=== PATIENT | female | born 1960 | race African-American/Black ===

== ENCOUNTER 2020-10-29 09:22 | Emergency (ER) | payer OTHER ==
[2020-10-29 09:31] VITALS: BP 169/63; PULSE 85; TEMP 98.2; BMI 27.9
[2020-10-29 10:47] LABS: EOS % 0.7 % (0-4.5); HEMATOCRIT 39.4 % (32.4-45.2); HEMOGLOBIN 13.5 GM/dL (10.7-15.3); MCH 29.8 pg (25.7-33.7); MCHC 34.4 g/dl (32.0-36.0); MEAN CELL VOLUME 86.7 fl (80-96); MEAN PLT VOLUME 9.3 fl (7.5-11.1); MONO % 5.6 % (3.8-10.2); NEUT % 66.7 % (42.8-82.8); PLATELET COUNT 205 K/MM3 (134-434); RBC 4.54 M/mm3 (3.60-5.2); WHITE BLOOD COUNT 4.8 K/mm3 (4.0-10.0)
[2020-10-29 10:56] LABS: INR 0.98 (0.83-1.09); PROTHROMBIN TIME (PATIENT) 12.1 SEC (9.7-13.0)
[2020-10-29 10:59] LABS: ACTIVATED PTT 30.1 SECONDS (25.2-36.5)
[2020-10-29 11:16] LABS: POTASSIUM 3.8 mmol/L (3.5-5.1)
[2020-10-29 11:18] LABS: ALBUMIN 4.1 g/dl (3.4-5.0); BLOOD UREA NITROGEN 12.5 mg/dL (7-18); CALCIUM 9.6 mg/dL (8.5-10.1)
[2020-10-29 11:21] LABS: CREATININE 1.1 mg/dL (0.55-1.3)
[2020-10-29 11:22] LABS: BILIRUBIN,TOTAL 0.4 mg/dL (0.2-1); TOT PROT 7.7 g/dl (6.4-8.2)
[2020-10-29 11:38] LABS: PH,URINE 8.5 (5.0-8.0); URINE APPEARANCE CLEAR; URINE BILIRUBIN NEGATIVE (NEGATIVE); URINE COLOR YELLOW; URINE GLUCOSE (UA) NEGATIVE (NEGATIVE); URINE KETONE NEGATIVE (NEGATIVE); URINE LEUK ESTERASE NEGATIVE (NEGATIVE); URINE NITRITE NEGATIVE (NEGATIVE); URINE PROTEIN NEGATIVE (NEGATIVE); URINE UROBILINOGEN 0.2 mg/dL (0.2-1.0)
[2020-10-29] MEDS ORDERED: ACETAMINOPHEN 325 MG TABLET (FP) PO ONE (11:49)
[2020-10-29] MEDS ORDERED: ACETAMINOPHEN 325 MG TABLET (FP) ONE (11:51)
== END 2020-10-29 12:03 | disposition home or self-care (01) ==
LOC: JER 09:22
DX: G44.219 Episodic tension-type headache, not intractable (principal)
CPT/HCPCS: 36415; 70450-TC; 80053; 81003; 85025; 85610; 85730; 87086; 99284-25

== ENCOUNTER 2021-09-23 12:14 | Emergency (ER) | payer OTHER ==
[2021-09-23 12:20] VITALS: BMI 27.4
[2021-09-23] MEDS ORDERED: ACETAMINOPHEN 325 MG TABLET (FP) PO ONE (12:44)
[2021-09-23] MEDS ORDERED: ACETAMINOPHEN 325 MG TABLET (FP) ONE (13:06)
[2021-09-23 13:54] LABS: CALCIUM 9.4 mg/dL (8.5-10.1)
[2021-09-23 13:55] LABS: ALBUMIN 3.8 g/dl (3.4-5.0); BLOOD UREA NITROGEN 13.6 mg/dL (7-18)
[2021-09-23 13:56] LABS: BASO % 0.8 % (0-2.0); EOS % 1.7 % (0-4.5); HEMATOCRIT 38.9 % (32.4-45.2); LYMPH % 31.8 % (8-40); MCH 29.3 pg (25.7-33.7); MCHC 33.4 g/dl (32.0-36.0); MEAN CELL VOLUME 87.7 fl (80-96); MEAN PLT VOLUME 9.1 fl (7.5-11.1); MONO % 8.2 % (3.8-10.2); NEUT % 57.5 % (42.8-82.8); PLATELET COUNT 197 10^3/uL (134-434); RBC 4.44 M/mm3 (3.60-5.2); RDW 14.2 % (11.6-15.6); WHITE BLOOD COUNT 4.4 K/mm3 (4.0-10.0)
[2021-09-23 13:58] LABS: CREATININE 0.7 mg/dL (0.55-1.3)
[2021-09-23 14:00] LABS: BILIRUBIN,TOTAL 0.4 mg/dL (0.2-1)
[2021-09-23 15:31] VITALS: BP 147/75; PULSE 70; TEMP 98.6
== END 2021-09-23 15:11 | disposition home or self-care (01) ==
LOC: JER 12:14
DX: R07.9 Chest pain, unspecified (principal)
CPT/HCPCS: 36415; 80053; 84484; 85025; 93005; 93010; 99285-25